=== PATIENT | female | born 1980 | race Caucasian/White ===

== ENCOUNTER 2020-10-13 10:39 | Outpatient (REF) | payer OTHER, SELFPAY ==
--- NOTE | 2020-10-13 | MM_ITS ---
EXAMINATION: MM SCREENING DIGITAL BREAST TOMOSYNTHESIS, BILATERAL CLINICAL INFORMATION: Screening. Asymptomatic. Family history breast cancer, mother age 43 and aunt age 51, . The lifetime risk of breast cancer based on the Tyrer-Cuzick Model is 26%. COMPARISON: Mammography: 10/11/2019, 10/05/2018, 05/27/2016 TECHNIQUE: Digital breast tomosynthesis is performed in both the craniocaudal and mediolateral oblique views along with computer-aided detection (CAD). Synthesized 2D images are generated from the tomosynthesis. FINDINGS: The breasts are extremely dense, which lowers the sensitivity of mammography (ACR BI-RADS breast composition Category d). There is no interval mass or architectural abnormality. No abnormal calcifications on left. Right breast has grouped calcifications mid 9:00 position which vary in size, some foci are punctate and not well visualized. They may be decreased in number from prior study. Patient will be recalled for magnification views in order to fully characterize. MM/MM tomosynthesis screening BI IMPRESSION: 1. Right: Grouped calcifications 9:00 position, which vary in size, some foci are punctate and not well visualized. They may be decreased in number from prior study. 2. Left: No mammographic evidence of malignancy. ASSESSMENT: BI-RADS 0: Incomplete - Need Additional Imaging Evaluation RECOMMENDATION: 1. Additional views of the right breast (magnification CC, magnification ML). 2. Radiology department staff will contact the patient for additional imaging. This patient's information was entered into a reminder system with a target due date for their next mammogram.
== END 2020-10-13 10:40 | disposition home or self-care (01) ==
LOC: HO.MAMMO 10:39
PROVIDERS: PCP Nurse Practitioner Family; Visit Provider Nurse Practitioner Family
DX: Z12.31 Encounter for screening mammogram for malignant neoplasm of breast (principal)
CPT/HCPCS: 77063; 77067

== ENCOUNTER 2020-10-17 09:32 | Outpatient (REF) | payer OTHER, SELFPAY ==
--- NOTE | 2020-10-17 09:36 | MM_ITS ---
EXAMINATION: MM DIAGNOSTIC DIGITAL MAMMOGRAPHY, RIGHT CLINICAL INFORMATION: Recall from screening for grouped calcifications mid 9:00 position. Family history breast cancer mother, age 43 and aunt age 51, . TC score 26%. COMPARISON: Mammography: 10/13/2020 and prior studies dating back to 05/02/2013 TECHNIQUE: Digital mammography is performed in the following views: Magnification CC, magnification exaggerated CC, magnification ML. FINDINGS: The breasts are extremely dense, which lowers the sensitivity of mammography (ACR BI-RADS breast composition Category d). The additional views confirm at least 10 grouped calcifications mid 9:00 position which vary in size and attenuation. There are some benign coarse calcifications but also fine faint calcifications in this area. No ductal distribution. Stereotactic sampling is recommended. Results are discussed with the patient at time of visit. MM/MM added views RT IMPRESSION: Grouped heterogeneous calcifications mid 9:00 right breast. ASSESSMENT: BI-RADS 4: Suspicious RECOMMENDATION: 1. Stereotactic sampling right breast calcifications. 2. The lifetime risk of breast cancer based on the Tyrer-Cuzick Model is 26%. Additional annual adjunct screening with breast MRI may be of benefit in women with a risk score of 20% or greater and dense breast parenchymal pattern.
== END 2020-10-17 09:33 | disposition home or self-care (01) ==
LOC: HO.MAMMO 09:32
PROVIDERS: Visit Provider Nurse Practitioner Family
DX: R92.1 Mammographic calcification found on diagnostic imaging of breast (principal)
CPT/HCPCS: 77065

== ENCOUNTER → 2020-10-21 09:42 | Outpatient (BNVA) | payer OTHER, SELFPAY | PROVIDERS: PCP Nurse Practitioner Family; Visit Provider Surgery | DX: Z76.89 Persons encountering health services in other specified circumstances (principal) ==

== ENCOUNTER 2020-10-22 07:51 | Outpatient (REF) | payer OTHER, SELFPAY ==
--- NOTE | 2020-10-22 07:53 | MM_ITS ---
EXAMINATION: STEREOTACTIC TOMOSYNTHESIS-GUIDED VACUUM-ASSISTED BREAST BIOPSY, RIGHT SPECIMEN RADIOGRAPH, RIGHT POST PROCEDURE DIGITAL MAMMOGRAM, RIGHT CLINICAL INFORMATION: Age 39 with grouped heterogeneous calcifications 9:00 right breast. Family history breast cancer (mother age 43 and aunt age 51, ). Tyrer-Cuzick Model is 26%. COMPARISON: Mammography 10/17/2020, 10/13/2020, 10/05/2019. TECHNIQUE/PROCEDURE: Informed consent was obtained from the patient after discussion of the benefits, risks, and alternatives to biopsy today. Patient appeared to understand. Gave opportunity for questions. Patient signed consent form. BIOPSY TABLE: Dry Lube Affirm Prone Biopsy System. LESION: Grouped calcifications 9:00 right breast which vary in size and attenuation, some benign coarse. LOCAL ANESTHESIA: 5 mL 1% lidocaine; 10 mL 1% lidocaine with epinephrine. DERMATOTOMY: Single skin jabier dermatotomy performed. NEEDLE: [employer]app[employer] Eviva 9-gauge vacuum assisted core biopsy device. APPROACH: lateral medial. TARGETING: Digital breast tomosynthesis used for targeting. CORES: 9. CLIP: Un[employer] T-shaped marker. SPECIMEN RADIOGRAPH: Specimen radiograph is taken in separate room using digital mammography. The index calcifications are in the excised cores. There are at least 12 calcifications in the cores. POST PROCEDURE UNILATERAL DIGITAL MAMMOGRAM: The post biopsy mammogram is performed in separate room using separate digital mammography equipment from the biopsy procedure. CC and ML views are obtained. The breasts are extremely dense, which lowers the sensitivity of mammography (breast composition category: d). The clip marker is in position. The calcifications are markedly decreased at the biopsy site. No gross hematoma. The patient tolerated the procedure well. No immediate complications. Home instructions reviewed with the patient. Final pathology results are pending. MM/MM stereotactic biopsy RT IMPRESSION: 1. Digital tomosynthesis-guided core biopsy right breast with clip placement. 2. Specimen radiograph taken and post procedure mammogram. There is satisfactory positioning of the biopsy clip. 3. Final pathology results pending. An addendum report will be issued.
== END 2020-10-22 07:52 | disposition home or self-care (01) ==
LOC: HO.MAMMO 07:51
PROVIDERS: PCP Nurse Practitioner Family; Visit Provider Surgery
DX: R92.1 Mammographic calcification found on diagnostic imaging of breast (principal)
CPT/HCPCS: 19081; 88305; A4648

== ENCOUNTER 2020-10-29 08:00 | Outpatient (REF) | payer OTHER, SELFPAY ==
[2020-10-29 08:25] LABS: COVID-19 Test Negative (Negative)
== END 2020-10-29 08:01 | disposition home or self-care (01) ==
LOC: HO.EMPCOV 08:00
PROVIDERS: PCP Internal Medicine; Visit Provider Internal Medicine
DX: Z20.828 Contact with and (suspected) exposure to other viral communicable diseases (principal)
CPT/HCPCS: 87635; C9803

== ENCOUNTER 2020-11-10 13:42 | Outpatient (REF) | payer OTHER, SELFPAY ==
[2020-11-10 13:55] LABS: COVID-19 Test Positive (Negative); IDNOW Serial# 55D5AD1C
== END 2020-11-10 13:43 | disposition home or self-care (01) ==
LOC: HO.EMPCOV 13:42
PROVIDERS: Visit Provider Internal Medicine
DX: Z20.828 Contact with and (suspected) exposure to other viral communicable diseases (principal)
CPT/HCPCS: 36415; 87635; C9803

== ENCOUNTER 2020-12-19 22:52 | Emergency (ER) | payer OTHER, SELFPAY ==
[2020-12-19 23:03] VITALS: BP 113/72; PULSE 85; RESP 16; TEMP 36.8; O2SAT 100; BMI 24.0
--- NOTE | 2020-12-20 00:17 | ED.MEDCLEAR ---
HPI - Medical Clearance General Chief complaint: Body Fluid Exposure Stated complaint: Needle stick at work Time Seen by Provider: 12/20/20 00:08 Source: patient Mode of arrival: ambulatory Limitations: no limitations History of Present Illness HPI Narrative: 40-year-old female with no significant past medical history presents for needlestick injury to the left palm. complaint: medical clearance requested Onset (ago): hour(s) (Within the hour of arrival) Place: work Traumatic Symptoms: other (Needlestick injury) Associated Symptoms: denies other symptoms Related Information Home Medications Medication Instructions Recorded Confirmed albuterol sulfate 90 mcg/actuation 2 puff PO Q4H PRN 10/21/20 aerosol inhaler fluticasone 100 mcg-salmeterol 50 1 inh INHALATION Q12H 10/21/20 mcg/dose blistr powdr for inhalation montelukast 10 mg tablet 10 mg PO DAILY 10/21/20 Allergies Allergy/AdvReac Type Severity Reaction Status Date / Time No Known Allergies Allergy Verified 10/21/20 09:51 Review of Systems Review of Systems: Constitutional: No Fever, No Chills ENT/Mouth: No Ear Pain, No Hoarseness, No sore throat Eyes: No Eye Pain, No Swelling, No Redness, No Foreign Body Cardiovascular: No Chest Pain, No SOB Respiratory: No Cough, No Dyspnea Gastrointestinal: No Nausea, No Vomiting, No Diarrhea, No abdominal Pain Genitourinary: No Dysuria, No Hematuria Musculoskeletal: positive left palm pain, No Myalgias, No Joint Swelling Skin: No Skin lacerations, No rash Neuro: No Weakness, No Numbness, No Paresthesias, No Loss of Consciousness, No Dizziness, No Headache Psych: No Anxiety/Panic, No Depression Heme/Lymph: no easy bruising, no Lymphadenopathy Endocrine: No Polyuria, No Polydipsia PMFSH Past Medical History Medical History (Updated 12/20/20 @ 00:17 by Sushma Merchant NP) Family history of breast cancer Family History Family History Mother History of breast cancer Maternal Aunt History of breast cancer Social History Social History Alcohol intake: never Smoking Status: Never smoker Smoked in Last 30 Days: No Use of substances other than those prescribed or required for medical reasons: No Any prior treatment program specific to substance use: No Advance Directives: No Physical Exam Vital Signs: Vital Signs: Last Vital Signs Temp 98.2 F 12/19/20 23:03 Pulse 85 12/19/20 23:03 Resp 16 12/19/20 23:03 BP 113/72 12/19/20 23:03 Pulse Ox 100 12/19/20 23:03 Body Mass Index 24.0 Appearance: Alert. Oriented X3. No acute distress. Eyes: Pupils equal, round and reactive to light. ENT: Pharynx normal. Neck: Normal inspection. Neck supple. CVS: Normal heart rate and rhythm. Pulses normal. Respiratory: No respiratory distress. Breath sounds normal. Abdomen: Soft and nontender. Skin: Puncture wound noted to the left hand, Skin warm and dry. Normal skin color. Normal skin turgor. Extremities: No lower extremity edema. Neuro: No motor deficit. No sensory deficit. 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 She did irrigate the injury with copious amounts of soap and water. No indication of retained foreign body. Needle was a lancet. Plan of care is to order exposure medications, HIV and hepatitis panel. Will update Tdap vaccine. Patient does understand that she must follow up with [facility]. Patient verbalized understanding of and agrees plan of care discharge home. MDM - Medical Clearance MDM Narrative Medical decision making narrative: Needlestick injury Lab Data Result diagrams: 12/20/20 00:46 12/20/20 00:46 Labs: Lab Results 12/20/20 12/20/20 Range/Units 00:46 00:46 WBC 7.3 (4.8-10.8) X10*3/uL RBC 4.36 (4.20-5.50) X10*6/uL Hgb 12.8 (12.0-16.0) g/dl Hct 38.7 (37-47) % MCV 88.8 (80-98) fL MCH 29.4 (27.0-33.0) pg MCHC 33.1 (31.0-35.0) g/dl RDW 12.7 (11.0-16.0) % Plt Count 222 (160-400) X10*3/uL MPV 11.5 (9.4-12.3) fL Immature Gran % (Auto) 0.1 (0.0-0.4) % Neut % (Auto) 51.9 (45-73) % Lymph % (Auto) 28.9 (20-40) % [place] % (Auto) 8.1 (2-11) % Eos % (Auto) 10.0 H (0-4) % Baso % (Auto) 1.0 (0-2) % Lymph # (Auto) 2.1 (1.2-4.9) X10*3/uL [place] # (Auto) 0.6 (0.1-1.2) X10*3/uL Eos # (Auto) 0.7 H (0.0-0.4) X10*3/uL Baso # (Auto) 0.1 (0.0-0.2) X10*3/uL Abs Immat Gran (auto) 0.01 (0.00-0.03) X10*3/uL Absolute Neuts (auto) 3.8 (2.0-8.3) X10*3/uL Absolute Nucleated RBC 0.000 (0.0-0.012) X10*3/uL Nucleated RBC % (auto) 0.0 (0.0-0.2) /100WBC Sodium 139 (135-145) mmol/L Potassium 3.8 (3.3-5.1) mmol/L Chloride 108 (96-108) mmol/L Carbon Dioxide 23 (22-29) mmol/L Anion Gap 12 (12-20) BUN 16 (9-16) mg/dL Creatinine 0.77 (0.5-1.4) mg/dL Estim Creat Clear Calc 84.7 Estimated GFR > 60 Random Glucose 93 (60-115) mg/dL Calcium 8.9 (8.4-10.2) mg/dL Discharge Plan Discharge Clinical Impression: Exposure to body fluid due to accidental needlestick injury Patient Disposition: Home, Self-Care Instructions: Postexposure Prophylaxis (ED) Additional Instructions: You were evaluated for needlestick. We provided you with a Tdap vaccine and post exposure prophylaxis kit. Please follow the directions. We tested you for hepatitis panel and HIV. Please follow-up with [facility] for further care. Thank you for choosing this emergency department for evaluation. Please follow-up with primary care physician as needed. Return to the emergency department for any new, concerning, or worsening symptoms. Prescriptions: No Action albuterol sulfate 90 mcg/actuation HFA aerosol inhaler 2 puff PO Q4H PRN (Reason: wheezing) RF: 0 fluticasone propion-salmeterol [Advair Diskus] 100-50 mcg/dose blister with device 1 inh inhalation Q12H RF: 0 montelukast [Singulair] 10 mg tablet 10 mg PO DAILY RF: 0 Interventions: ED Discharge Assessment Last Done: 12/20/20 01:11 Discharge Date/Time: 12/20/20 01:19
[2020-12-20] MEDS: Post Exposure Medication Kit 1 KIT PO (00:35)
[2020-12-20 00:52] LABS: MANUAL DIFF FLAG NO
[2020-12-20 00:53] LABS: Basophils Absolute Auto 0.1 X10*3/uL (0.0-0.2); Eosinophils Absolute Auto 0.7 X10*3/uL (0.0-0.4); Hematocrit 38.7 % (37-47); Hemoglobin 12.8 g/dl (12.0-16.0); Imm Gran Abs Auto 0.01 X10*3/uL (0.00-0.03); Imm Gran Pct Auto 0.1 % (0.0-0.4); Lymphocytes Absolute Auto 2.1 X10*3/uL (1.2-4.9); Lymphocytes Percent Auto 28.9 % (20-40); Mean Corpuscular HGB Conc 33.1 g/dl (31.0-35.0); Mean Corpuscular Hemoglobin 29.4 pg (27.0-33.0); Mean Corpuscular Volume 88.8 fL (80-98); Mean Platelet Volume 11.5 fL (9.4-12.3); Monocytes Absolute Auto 0.6 X10*3/uL (0.1-1.2); Monocytes Percent Auto 8.1 % (2-11); Neutrophils Absolute Auto 3.8 X10*3/uL (2.0-8.3); Neutrophils Percent Auto 51.9 % (45-73); Platelet Count 222 X10*3/uL (160-400); Red Blood Count 4.36 X10*6/uL (4.20-5.50); Red Cell Distribution Width 12.7 % (11.0-16.0); White Blood Count 7.3 X10*3/uL (4.8-10.8)
[2020-12-20 01:11] LABS: Anion Gap 12 (12-20); Blood Urea Nitrogen 16 mg/dL (9-16); Calcium 8.9 mg/dL (8.4-10.2); Carbon Dioxide 23 mmol/L (22-29); Chloride 108 mmol/L (96-108); Creatinine Clr Calc Pharmacy 84.7; Estimated Glomerular Filt Rate > 60; Glucose Random 93 mg/dL (60-115); Potassium 3.8 mmol/L (3.3-5.1); Sodium 139 mmol/L (135-145)
[2020-12-20 03:44] LABS: HIV AB/AG Nonreactive (Nonreactive)
[2020-12-22 03:57] LABS: HBsAGNum1 0.14 S/CO (0.00-0.99); Hepatitis B Surface Antigen Negative (Negative)
[2020-12-22 04:03] LABS: HBS Num1 455.52 mIU/mL (0-7.99); HBc Num1 0.08 S/CO (0.00-0.79); Hepatitis B Core Antibody Nonreactive (Nonreactive); ~HepC Num1 0.07 S/CO (0.00-0.79); ~Hepatitis B Surface Antibody REACTIVE (Nonreactive); ~Hepatitis C Antibody Nonreactive (Nonreactive)
[2020-12-22 04:07] LABS: HIV Num 1 0.07 S/CO (0.00-0.99)
[2020-12-25 08:51] LABS: ~Hepatitis A Antibody IgM Nonreactive (Nonreactive)
== END 2020-12-20 01:19 | disposition home or self-care (01) ==
PROVIDERS: Nurse Practitioner Family; Emergency Provider Internal Medicine; PCP Nurse Practitioner Family
DX: Z77.21 Contact with and (suspected) exposure to potentially hazardous body fluids (principal); Z79.899 Other long term (current) drug therapy; Z23 Encounter for immunization
CPT/HCPCS: 36415; 80048; 85025; 86704; 86706; 86709; 86803; 87340; 87389; 90471; 90715; 99284

== ENCOUNTER → 2020-12-30 07:35 | Outpatient (BNVA) | payer OTHER, SELFPAY | PROVIDERS: PCP Nurse Practitioner Family; Visit Provider Physician Assistant Medical | DX: Z20.822 Contact with and (suspected) exposure to COVID-19 (principal) | CPT/HCPCS: 99203 ==

== ENCOUNTER → 2021-02-02 07:43 | Outpatient (BNVA) | payer OTHER, SELFPAY | PROVIDERS: PCP Nurse Practitioner Family; Visit Provider Physician Assistant Medical | DX: Z13.89 Encounter for screening for other disorder (principal) | CPT/HCPCS: 36415; 84450; 84460; 87389; 99211 ==

== ENCOUNTER → 2021-04-02 07:45 | Outpatient (BNVA) | payer OTHER, SELFPAY | PROVIDERS: PCP Nurse Practitioner Family | DX: Z13.29 Encounter for screening for other suspected endocrine disorder (principal) | CPT/HCPCS: 36415; 84450; 84460; 86803; 87389; 99211 ==

== ENCOUNTER 2021-04-08 14:50 | Outpatient (REF) | payer OTHER, SELFPAY ==
--- NOTE | ~2021-04-08 | MM_ITS ---
EXAMINATION: MM DIAGNOSTIC DIGITAL BREAST TOMOSYNTHESIS, RIGHT CLINICAL INFORMATION: Follow-up benign right stereotactic biopsy 10/22/2020 (Benign breast tissue with fibrocystic changes and calcifications. No atypia or malignancy). Family history breast cancer, mother age 43 and maternal aunt age 51. The lifetime risk of breast cancer based on the Tyrer-Cuzick Model is 26%. COMPARISON: Mammography: 10/22/2020, 10/17/2020, 10/13/2020, 10/11/2019, 10/05/2018 TECHNIQUE: Digital breast tomosynthesis is performed in both the craniocaudal and mediolateral oblique views along with computer-aided detection (CAD). Synthesized 2D images are generated from the tomosynthesis. Additional magnification right CC and magnification right ML views are obtained. FINDINGS: The breasts are extremely dense, which lowers the sensitivity of mammography (ACR BI-RADS breast composition Category d). There is biopsy clip marker 9:00 position mid depth. There are only a few calcifications remaining in this area, most otherwise having been removed at the stereotactic sampling. The breast parenchymal pattern appears similar to prior studies. There is no mass or architectural abnormality or abnormal calcifications. The axilla and skin contours are unremarkable. Results are discussed with the patient at time of visit. MM/MM tomosynthesis diagnostic RT IMPRESSION: No mammographic evidence of malignancy. ASSESSMENT: BI-RADS 2: Benign RECOMMENDATION: 1. Routine annual mammography screening. 2. The lifetime risk of breast cancer based on the Tyrer-Cuzick Model is 26%. Additional annual adjunct screening with breast MRI may be of benefit in women with a risk score of 20% or greater and dense breast tissue composition on mammography. This patient's information was entered into a reminder system with a target due date for their next mammogram.
== END 2021-04-08 14:51 | disposition home or self-care (01) ==
LOC: HO.MAMMO 14:50
PROVIDERS: Visit Provider Surgery
DX: R92.1 Mammographic calcification found on diagnostic imaging of breast (principal); Z80.3 Family history of malignant neoplasm of breast
CPT/HCPCS: 77061; 77065

== ENCOUNTER → 2021-07-02 07:38 | Outpatient (BNVA) | payer OTHER, SELFPAY | PROVIDERS: PCP Nurse Practitioner Family | DX: Z02.79 Encounter for issue of other medical certificate (principal) | CPT/HCPCS: 36415; 84450; 84460; 86803; 87389; 99211 ==

== ENCOUNTER 2021-10-16 08:54 | Outpatient (REF) | payer OTHER, SELFPAY ==
--- NOTE | ~2021-10-16 | MM_ITS ---
EXAMINATION: MM SCREENING DIGITAL BREAST TOMOSYNTHESIS, BILATERAL CLINICAL INFORMATION: Screening. Asymptomatic. Family history breast cancer, mother age 43, maternal aunt age 51. Prior history benign right stereotactic biopsy 10/22/2020 (Benign breast tissue with fibrocystic changes and calcifications. No atypia or malignancy). The lifetime risk of breast cancer based on the Tyrer-Cuzick Model is 26%. COMPARISON: Mammography: 04/08/2021, 10/22/2020, 10/17/2020, 10/13/2020, 10/11/2019, 10/05/2018; outside mammography 05/27/2016 ([email or web address]). TECHNIQUE: Digital breast tomosynthesis is performed in both the craniocaudal and mediolateral oblique views along with computer-aided detection (CAD). Synthesized 2D images are generated from the tomosynthesis. FINDINGS: The breasts are extremely dense, which lowers the sensitivity of mammography (ACR BI-RADS breast composition Category d). Parenchymal pattern is similar to prior exams. Minor stable parenchymal asymmetry again noted posterior 12:00 left breast. There is stable low right axillary tail node. There is no developing density or interval mass or architectural abnormality. No abnormal calcifications. Biopsy clip marker again seen mid 9:00 right breast. No significant changes. MM/MM tomosynthesis screening BI IMPRESSION: No mammographic evidence of malignancy. ASSESSMENT: BI-RADS 2: Benign RECOMMENDATION: 1. Routine annual mammography screening. 2. The lifetime risk of breast cancer based on the Tyrer-Cuzick Model is 26%. Additional annual adjunct screening with breast MRI may be of benefit in women with a risk score of 20% or greater and dense breast parenchymal pattern. This patient's information was entered into a reminder system with a target due date for their next mammogram.
== END 2021-10-16 08:55 | disposition home or self-care (01) ==
LOC: HO.MAMMO 08:54
PROVIDERS: Visit Provider Nurse Practitioner Family
DX: Z12.31 Encounter for screening mammogram for malignant neoplasm of breast (principal)
CPT/HCPCS: 77063; 77067

== ENCOUNTER 2021-10-20 06:35 | Outpatient (REF) | payer OTHER, SELFPAY ==
[2021-10-20 07:27] LABS: COVID-19 Test Negative (Negative); IDNOW Serial# 9DD0AD1C
== END 2021-10-20 06:36 | disposition home or self-care (01) ==
LOC: HO.LAB 06:35
PROVIDERS: PCP Nurse Practitioner Family; Visit Provider Internal Medicine
DX: Z20.822 Contact with and (suspected) exposure to COVID-19 (principal)
CPT/HCPCS: 36415; 87635

== ENCOUNTER 2021-10-21 10:36 | Outpatient (REF) | payer OTHER, SELFPAY ==
[2021-10-21 10:54] LABS: MANUAL DIFF FLAG NO
[2021-10-21 12:03] LABS: Basophils Absolute Auto 0.1 X10*3/uL (0.0-0.2); Basophils Percent Auto 1.2 % (0-2); Eosinophils Absolute Auto 0.5 X10*3/uL (0.0-0.4); Eosinophils Percent Auto 9.5 % (0-4); Hematocrit 42.4 % (37.0-47.0); Hemoglobin 13.4 g/dl (12.0-16.0); Imm Gran Abs Auto 0.01 X10*3/uL (0.00-0.03); Imm Gran Pct Auto 0.2 % (0.0-0.4); Lymphocytes Absolute Auto 1.6 X10*3/uL (1.2-4.9); Lymphocytes Percent Auto 32.2 % (20-40); Mean Corpuscular HGB Conc 31.6 g/dl (31.0-35.0); Mean Corpuscular Hemoglobin 28.8 pg (27.0-33.0); Mean Platelet Volume 12.3 fL (9.4-12.3); Monocytes Absolute Auto 0.5 X10*3/uL (0.1-1.2); Monocytes Percent Auto 9.5 % (2-11); Neutrophils Absolute Auto 2.4 x10*3/uL (2.0-8.3); Neutrophils Percent Auto 47.4 % (45-73); Platelet Count 238 X10*3/uL (160-400); Red Blood Count 4.66 X10*6/uL (4.20-5.50); Red Cell Distribution Width 12.5 % (11.0-16.0)
[2021-10-21 12:31] LABS: Alanine Aminotransferase 19 U/L (0-31); Albumin Level 4.1 g/dL (3.5-5.0); Alkaline Phosphatase 45 U/L (39-117); Anion Gap 10 (12-20); Aspartate Amino Transferase 15 U/L (5-31); Bilirubin Total 0.9 mg/dL (0.0-1.0); Blood Urea Nitrogen 13 mg/dL (9-16); Calcium 9.5 mg/dL (8.4-10.2); Carbon Dioxide 26 mmol/L (22-29); Chloride 109 mmol/L (96-108); Cholesterol 203 mg/dL; Estimated Glomerular Filt Rate > 60; Glucose Random 83 mg/dL (60-115); HDL Cholesterol 58 mg/dL; LDL Cholesterol Calculated 136 mg/dl; Potassium 4.2 mmol/L (3.3-5.1); Sodium 141 mmol/L (135-145); Total Protein 6.8 g/dL (6.5-8.0); Triglycerides 49 mg/dL
[2021-10-21 12:43] LABS: ~HepC Num1 0.08 S/CO (0.00-0.79); ~Hepatitis C Antibody Nonreactive (Nonreactive)
[2021-10-21 12:53] LABS: Vitamin D 25-OH Total 4.9 ng/mL (>30)
== END 2021-10-21 10:37 | disposition home or self-care (01) ==
LOC: HO.LAB 10:36
PROVIDERS: PCP Nurse Practitioner Family; Visit Provider Nurse Practitioner Family
DX: Z00.00 Encounter for general adult medical examination without abnormal findings (principal); E55.9 Vitamin D deficiency, unspecified; Z11.59 Encounter for screening for other viral diseases; Z13.220 Encounter for screening for lipoid disorders
CPT/HCPCS: 36415; 80053; 80061; 82306; 85025; 86803

== ENCOUNTER 2021-11-01 06:25 | Outpatient (REF) | payer OTHER, SELFPAY ==
[2021-11-01 06:58] LABS: COVID-19 Test Negative (Negative)
== END 2021-11-01 06:26 | disposition home or self-care (01) ==
LOC: HO.LAB 06:25
PROVIDERS: PCP Nurse Practitioner Family; Visit Provider Internal Medicine
DX: Z20.822 Contact with and (suspected) exposure to COVID-19 (principal)
CPT/HCPCS: 36415; 87635

== ENCOUNTER 2021-11-09 14:11 | Outpatient (REF) | payer OTHER, SELFPAY ==
--- NOTE | ~2021-11-09 | XR_ITS ---
EXAMINATION: XR CHEST CLINICAL INFORMATION: Cough COMPARISON: None TECHNIQUE: 2 views of the chest were obtained. FINDINGS: No significant abnormality is noted involving the heart, lungs, mediastinum, bony thorax or soft tissues. XR/XR chest 2V IMPRESSION: Unremarkable examination.
== END 2021-11-09 14:12 | disposition home or self-care (01) ==
LOC: HO.XRAY 14:11
PROVIDERS: PCP Nurse Practitioner Family; Visit Provider Internal Medicine
DX: R05.9 Cough, unspecified (principal)
CPT/HCPCS: 71046

== ENCOUNTER 2022-09-20 09:32 | Outpatient (REF) | payer OTHER, SELFPAY ==
[2022-09-20 09:45] LABS: MANUAL DIFF FLAG NO
[2022-09-20 10:10] LABS: Basophils Absolute Auto 0.1 X10*3/uL (0.0-0.2); Basophils Percent Auto 1.4 % (0-2); Eosinophils Absolute Auto 0.4 X10*3/uL (0.0-0.4); Eosinophils Percent Auto 8.4 % (0-4); Hematocrit 41.2 % (37.0-47.0); Hemoglobin 12.9 g/dl (12.0-16.0); Imm Gran Abs Auto 0.02 X10*3/uL (0.00-0.03); Imm Gran Pct Auto 0.4 % (0.0-0.4); Lymphocytes Absolute Auto 1.8 X10*3/uL (1.2-4.9); Lymphocytes Percent Auto 35.2 % (20-40); Mean Corpuscular HGB Conc 31.3 g/dl (31.0-35.0); Mean Corpuscular Hemoglobin 28.7 pg (27.0-33.0); Mean Corpuscular Volume 91.6 fL (80.0-98.0); Monocytes Absolute Auto 0.4 X10*3/uL (0.1-1.2); Monocytes Percent Auto 8.6 % (2-11); Neutrophils Absolute Auto 2.4 x10*3/uL (2.0-8.3); Platelet Count 226 X10*3/uL (160-400); Red Cell Distribution Width 12.7 % (11.0-16.0); White Blood Count 5.1 X10*3/uL (4.8-10.8)
[2022-09-20 11:00] LABS: Ferritin 27 ng/mL (10-250); Free T4 (Free Thyroxine) 0.92 ng/dL (0.71-1.85); Thyroid Stimulating Hormone 1.77 uIU/mL (0.32-4.0)
== END 2022-09-20 09:33 | disposition home or self-care (01) ==
LOC: HO.LAB 09:32
PROVIDERS: PCP Nurse Practitioner Family; Visit Provider Dermatology
DX: D22.71 Melanocytic nevi of right lower limb, including hip (principal); L57.8 Other skin changes due to chronic exposure to nonionizing radiation; L81.3 Cafe au lait spots; D22.9 Melanocytic nevi, unspecified; Q82.8 Other specified congenital malformations of skin; L65.0 Telogen effluvium; L70.0 Acne vulgaris; Z87.2 Personal history of diseases of the skin and subcutaneous tissue
CPT/HCPCS: 36415; 82728; 84439; 84443; 85025

== ENCOUNTER 2022-10-22 07:47 | Outpatient (REF) | payer OTHER, SELFPAY ==
--- NOTE | ~2022-10-22 | MM_ITS ---
EXAMINATION: MM SCREENING DIGITAL BREAST TOMOSYNTHESIS, BILATERAL CLINICAL INFORMATION: Screening. Asymptomatic. The lifetime risk of breast cancer based on the Tyrer-Cuzick Model is 27%. Additional annual screening with breast MRI may be of benefit in women with a score of 20% or greater. COMPARISON: Mammography: October 16, 2021 and studies dating back to May 27, 2016 TECHNIQUE: Digital breast tomosynthesis is performed in both the craniocaudal and mediolateral oblique views along with computer-aided detection (CAD). Synthesized 2D images are generated from the tomosynthesis. FINDINGS: The breasts are extremely dense, which lowers the sensitivity of mammography (ACR BI-RADS breast composition Category d). There are no significant masses, abnormal calcifications, or other abnormalities. MM/MM tomosynthesis screening BI IMPRESSION: No significant changes from prior exam. ASSESSMENT: BI-RADS 1: Negative RECOMMENDATION: Routine annual mammography screening. This patient's information was entered into a reminder system with a target due date for their next mammogram.
== END 2022-10-22 07:48 | disposition home or self-care (01) ==
LOC: HO.MAMMO 07:47
PROVIDERS: PCP Nurse Practitioner Family; Visit Provider Nurse Practitioner Family
DX: Z12.31 Encounter for screening mammogram for malignant neoplasm of breast (principal)
CPT/HCPCS: 77063; 77067

== ENCOUNTER 2023-10-28 08:11 | Outpatient (REF) | payer BC, SELFPAY ==
--- NOTE | ~2023-10-28 | MM_ITS ---
EXAMINATION: MM SCREENING DIGITAL BREAST TOMOSYNTHESIS, BILATERAL CLINICAL INFORMATION: Screening. Asymptomatic. Family history breast cancer, mother age 43, maternal aunt age 51. Prior benign right stereotactic biopsy. COMPARISON: Mammography: 10/22/2022, 10/16/2021, 04/08/2021, 10/22/2020, 10/17/2020, 10/13/2020, 10/11/2019, 10/05/2018; outside mammography 05/27/2016 ([facility]). TECHNIQUE: Digital breast tomosynthesis is performed in both the craniocaudal and mediolateral oblique views along with computer-aided detection (CAD). Synthesized 2D images are generated from the tomosynthesis. FINDINGS: The breasts are extremely dense, which lowers the sensitivity of mammography (ACR BI-RADS breast composition Category d). Biopsy clip noted in the upper outer right breast, middle one third, with benign appearing abutting posterior calcifications. This is unchanged. There are no suspicious masses, suspicious grouped calcifications, or areas of architectural distortion in either breast. The parenchymal pattern is stable from prior exams. MM/MM tomosynthesis screening BI IMPRESSION: No mammographic evidence of malignancy. ASSESSMENT: BI-RADS BI-RADS 2 - Benign Findings RECOMMENDATION: Routine annual mammography screening. 1 year F/U MRI could be considered as a screening adjunct in this high-risk patient. This examination should not preclude the clinical evaluation of a suspicious palpable abnormality. This patient's information was entered into a reminder system with a target due date for their next mammogram.
== END 2023-10-28 08:12 | disposition home or self-care (01) ==
LOC: HO.MAMMO 08:11
PROVIDERS: PCP Nurse Practitioner Family; Visit Provider Nurse Practitioner Family
DX: Z12.31 Encounter for screening mammogram for malignant neoplasm of breast (principal)
CPT/HCPCS: 77063; 77067

== ENCOUNTER → 2023-10-28 08:15 | Outpatient (BNV) | payer BC, SELFPAY | PROVIDERS: PCP Nurse Practitioner Family; Visit Provider Radiology Diagnostic Radiology | DX: Z12.31 Encounter for screening mammogram for malignant neoplasm of breast (principal) | CPT/HCPCS: 77063; 77067 ==

== ENCOUNTER 2024-11-03 08:08 | Outpatient (REF) | payer BC, SELFPAY ==
--- NOTE | ~2024-11-03 | MM_ITS ---
EXAMINATION: MM SCREENING DIGITAL BREAST TOMOSYNTHESIS, BILATERAL CLINICAL INFORMATION: Screening. Asymptomatic. COMPARISON: Mammography: Comparison is made with available priors TECHNIQUE: Digital breast mammography with tomosynthesis is performed in both the craniocaudal and mediolateral oblique views along with computer-aided detection (CAD). FINDINGS: The breasts are extremely dense, which lowers the sensitivity of mammography (ACR BI-RADS breast composition Category d). Right marker clip. There are no significant masses, abnormal calcifications, or other abnormalities. MM/MM tomosynthesis screening BI IMPRESSION: No mammographic evidence of malignancy. ASSESSMENT: BI-RADS BI-RADS 2 - Benign Findings RECOMMENDATION: Routine annual mammography screening. 1 year F/U This examination should not preclude the clinical evaluation of a suspicious palpable abnormality. This patient's information was entered into a reminder system with a target due date for their next mammogram. Electronically signed by: Tayler Yung DO 11/11/2024 05:42 PM [facility]
== END 2024-11-03 08:09 | disposition home or self-care (01) ==
LOC: HO.MAMMO 08:08
PROVIDERS: PCP Internal Medicine; Visit Provider Internal Medicine
DX: Z12.31 Encounter for screening mammogram for malignant neoplasm of breast (principal)
CPT/HCPCS: 77063; 77067

== ENCOUNTER → 2024-11-03 08:15 | Outpatient (BNV) | payer BC, SELFPAY | PROVIDERS: PCP Internal Medicine; Visit Provider Internal Medicine | DX: Z12.31 Encounter for screening mammogram for malignant neoplasm of breast (principal) | CPT/HCPCS: 77063; 77067 ==